=== PATIENT | female | born 1980 | race Caucasian/White ===

== ENCOUNTER 2017-10-11 06:26 | Emergency (ER) | payer MEDICAID, OTHER ==
[~2017-10-11] VITALS: Ht 167.6 cm; Wt 104.3 kg
[2017-10-11 06:36] VITALS: BP 151/101
[2017-10-11] MEDS ORDERED: BACITRACIN TOP OINT 1 UD PKG TOP ONE (07:30)
[2017-10-11] MEDS ORDERED: LIDOCAINE 1% (LOCAL ANESTH.) PF 5ml SDV ID ONE (07:30)
== END 2017-10-11 09:09 | disposition home or self-care (01) ==
LOC: ER 06:31
DX: S81.012A Laceration without foreign body, left knee, initial encounter (principal); S80.02XA Contusion of left knee, initial encounter; W01.0XXA Fall on same level from slipping, tripping and stumbling without subsequent striking against object, initial encounter; Y93.89 Activity, other specified; Y99.0 Civilian activity done for income or pay; Y92.69 Other specified industrial and construction area as the place of occurrence of the external cause
CPT/HCPCS: 12032; 12042; 12052; 73560; 81025

== ENCOUNTER 2017-10-18 14:20 | Emergency (ER) | payer MEDICAID, OTHER ==
[~2017-10-18] VITALS: Ht 170.2 cm; Wt 104.3 kg
[2017-10-18 14:46] VITALS: BP 149/98
== END 2017-10-18 16:09 | disposition home or self-care (01) ==
LOC: ER 14:20
DX: S81.012D Laceration without foreign body, left knee, subsequent encounter (principal); X58.XXXD Exposure to other specified factors, subsequent encounter

== ENCOUNTER 2018-08-29 10:20 | Emergency (ER) | payer MEDICAID ==
[~2018-08-29] VITALS: Ht 170.2 cm; Wt 104.3 kg
[2018-08-29 11:22] VITALS: BP 144/89
[2018-08-29] MEDS ORDERED: BACLOFEN 10 MG TAB PO ONE (12:00)
[2018-08-29] MEDS ORDERED: ACETAMINOPHEN/CODEINE#3 (300/30mg) TAB PO ONE (12:00)
== END 2018-08-29 13:07 | disposition home or self-care (01) ==
LOC: ER 10:20
DX: M54.2 Cervicalgia (principal); R51 Headache; M62.838 Other muscle spasm
CPT/HCPCS: 72040

== ENCOUNTER 2021-01-02 07:35 | Emergency (ER) | payer MEDICAID ==
[~2021-01-02] VITALS: Ht 167.6 cm; Wt 104.3 kg
[2021-01-02 08:47] VITALS: BP 148/68
[2021-01-02] MEDS ORDERED: IBUPROFEN 800 MG TAB PO ONE (09:30)
== END 2021-01-02 10:18 | disposition home or self-care (01) ==
LOC: ER 07:35
DX: G56.02 Carpal tunnel syndrome, left upper limb (principal)

== ENCOUNTER 2021-04-18 08:59 | Emergency (ER) | payer MEDICAID ==
[~2021-04-18] VITALS: Ht 167.6 cm; Wt 104.3 kg
[2021-04-18 12:54] VITALS: BP 168/98
== END 2021-04-18 10:57 | disposition home or self-care (01) ==
LOC: ER 08:59
DX: S46.811A Strain of other muscles, fascia and tendons at shoulder and upper arm level, right arm, initial encounter (principal); X58.XXXA Exposure to other specified factors, initial encounter; Y93.89 Activity, other specified; Y92.89 Other specified places as the place of occurrence of the external cause; Y99.8 Other external cause status
CPT/HCPCS: 73030

== ENCOUNTER 2022-03-11 14:59 | Emergency (ER) | payer MEDICAID ==
[~2022-03-11] VITALS: Ht 167.6 cm; Wt 109.0 kg
[2022-03-11 16:43] LABS: Basophils # (auto) 0.1 10 ^3/uL (0-0.2); Basophils % (auto) 0.8 % (0.0-2.0); Eosinophils # (auto) 0.1 10 ^3/uL (0-0.8); Eosinophils % (auto) 0.9 % (0.0-7.0); Hematocrit 39.4 % (36.0-46.0); Hemoglobin 13.1 g/dL (12.2-16.2); Lymphocytes # (auto) 2.6 10 ^3/uL (0.4-5.4); Lymphocytes % (auto) 25.3 % (10.0-50.0); Mean Corpuscular Hemoglobin 27.4 pg (28.0-32.0); Mean Corpuscular Hgb Conc. 33.2 g/dL (32.0-36.0); Mean Corpuscular Volume 82.6 fL (80.0-100.0); Monocytes # (auto) 0.7 10 ^3/uL (0-1.3); Monocytes % (auto) 7.2 % (0.0-12.0); Neutrophils # (auto) 6.7 10 ^3/uL (1.6-8.6); Neutrophils % (auto) 65.8 % (37.0-80.0); Nucleated Red Blood Cells % 0.2 %; Red Blood Cells 4.77 10^6/uL (4.0-5.20); Red Cell Distribution Width 13.9 % (11.8-14.3); White Blood Cell 10.2 10^3/uL (4.4-10.8)
[2022-03-11 17:00] LABS: Albumin 3.3 g/dL (3.4-5.0); Calcium 8.2 mg/dL (8.5-10.1); Magnesium 2.2 mg/dL (1.6-2.6); Potassium 3.9 mmol/L (3.5-5.1)
[2022-03-11 17:04] LABS: Bilirubin, Total 0.2 mg/dL (0.2-1.0); Total Protein 6.6 g/dL (6.4-8.2)
[2022-03-11] MEDS ORDERED: AML5T PO (19:01)
[2022-03-11 19:58] VITALS: BP 152/90
== END 2022-03-11 20:38 | disposition left against medical advice (07) ==
LOC: ER 14:59
DX: I10 Essential (primary) hypertension (principal); R07.89 Other chest pain; I51.7 Cardiomegaly
CPT/HCPCS: 36415; 71045; 80053; 83735; 83880; 84484; 85025; 93005